=== PATIENT | male | born 1960 | race Caucasian/White ===

== ENCOUNTER 2016-12-08 13:04 | Inpatient (IN) | payer BC ==
[2016-12-08 13:52] VITALS: BMI 22.1
--- NOTE | 2016-12-08 15:45 | HP ---
CIWA Score - CIWA Score Nausea/Vomitin Muscle Tremors: 3 Anxiety: 3 Agitation: 2 Paroxysmal Sweats: 3 Orientation: 0-Oriented Tacttile Disturbances: 1-Very Mild Itch/Numbness Auditory Disturbances: 0-None Visual Disturbances: 1-Very Mild Sensitivity Headache: 2-Mild CIWA-Ar Total Score: 17 Admission ROS BHS - HPI Chief Complaint: I'm here for detox Allergies/Adverse Reactions: Allergies Allergy/AdvReac Type Severity Reaction Status Date / Time No Known Allergies Allergy Verified 12/08/16 15:07 History of Present Illness: 56 y/o male with alcohol dependence presents for detox. He reports being sober for 5 years about 3 years ago, his last detox was in 2014 at [facility]. Exam Limitations: No Limitations - Ebola screening Have you traveled outside of the country in the last 21 days: No Have you had contact with anyone from an Ebola affected area: No Have you been sick,other than usual withdrawal symptoms: No Do you have a fever: No - Review of Systems Constitutional: Loss of Appetite, Unexplained wgt Loss EENT: reports: No Symptoms Reported Respiratory: reports: No Symptoms reported Cardiac: reports: No Symptoms Reported GI: reports: Nausea, Poor Appetite, Poor Fluid Intake : reports: No Symptoms Reported Musculoskeletal: reports: Muscle Pain, Muscle Weakness Integumentary: reports: No Symptoms Reported Neuro: reports: Headache, Numbness, Tremors Endocrine: reports: No Symptoms Reported Hematology: reports: No Symptoms Reported Psychiatric: reports: Anxious Other Systems: Reviewed and Negative Patient History - Patient Medical History Hx Anemia: No Hx Asthma: No Hx Chronic Obstructive Pulmonary Disease (COPD): No Hx Cancer: No Hx Cardiac Disorders: No Hx Congestive Heart Failure: No Hx Hypertension: No Hx Hypercholesterolemia: No Hx Pacemaker: No HX Cerebrovascular Accident: No Hx Seizures: Yes (last episode 7 years ago) Hx Dementia: No Hx Diabetes: No Hx Gastrointestinal Disorders: No Hx Liver Disease: No Hx Genitourinary Disorders: No Hx Sexually Transmitted Disorders: No Hx Renal Disease (ESRD): No Hx Thyroid Disease: No Hx Human Immunodeficiency Virus (HIV): No Hx Hepatitis C: No Hx Depression: Yes (anxiety) Hx Suicide Attempt: No Hx Bipolar Disorder: No Hx Schizophrenia: No - Patient Surgical History Past Surgical History: Yes Hx Neurologic Surgery: No Hx Cataract Extraction: No Hx Cardiac Surgery: No Hx Lung Surgery: No Hx Breast Surgery: No Hx Breast Biopsy: No Hx Abdominal Surgery: No Hx Appendectomy: No Hx Cholecystectomy: No Hx Genitourinary Surgery: No Hx Section: No Hx Orthopedic Surgery: Yes (bunion removal) Anesthesia Reaction: No - PPD History Previous Implant?: Yes Documented Results: Negative w/proof Implanted On Prior R Admission?: Yes Date: 08/03/15 PPD to be Administered?: Yes - Smoking Cessation Smoking history: Current every day smoker Have you smoked in the past 12 months: Yes Aproximately how many cigarettes per day: 15 Hx Chewing Tobacco Use: No Initiated information on smoking cessation: Yes 'Breaking Loose' booklet given: 12/08/16 - Substances Abused Alcohol Route: Oral Frequency: Daily Amount used: LIQUOR- 1 PINT Age of first use: 17 Date of Last Use: 12/08/16 Family Disease History - Family Disease History Family Disease History: Diabetes: Brother, Heart Disease: Mother (HTN), Other: Father (ALCOHOLIC) Admission Physical Exam S - Vital Signs Vital Signs: Vital Signs - 24 hr 12/08/16 13:49 Temperature 98.5 F Pulse Rate 99 H Respiratory 20 Rate Blood Pressure 143/82 - Physical General Appearance: Yes: No Apparent Distress, Nourished HEENTM: Yes: EOMI, Normocephalic, Normal Voice Respiratory: Yes: Chest Non-Tender, Lungs Clear, Normal Breath Sounds, No Respiratory Distress, No Accessory Muscle Use Neck: Yes: No masses,lesions,Nodules, Supple Breast: Yes: Breast Exam Deferred Cardiology: Yes: Regular Rhythm, Regular Rate Abdominal: Yes: Normal Bowel Sounds, Soft Genitourinary: Yes: Within Normal Limits Back: Yes: Normal Inspection Musculoskeletal: Yes: full range of Motion, Gait Steady, Pelvis Stable Extremities: Yes: Normal Capillary Refill, Normal Inspection, Normal Range of Motion, Non-Tender, Tremors Neurological: Yes: sas administrator II-XII NML intact, Fully Oriented, Alert, Normal Mood/ Affect, Normal Response Integumentary: Yes: Clammy Lymphatic: Yes: Within Normal Limits - Diagnostic (1) Alcohol dependence with uncomplicated withdrawal Current Visit: Yes Status: Acute (2) Nicotine dependence Current Visit: No Status: Acute Qualifiers: Nicotine product type: cigarettes Substance use status: uncomplicated Qualified Code(s): F17.210 - Nicotine dependence, cigarettes, uncomplicated Cleared for Admission BHS - Detox or Rehab [facility] Level of Care: Medically Managed Detox Regimen/Protocol: Librium [facility] Breath Alcohol Content Breath Alcohol Content: 0 Urine Drug Screen - Results Drug Screen Negative: Yes
[2016-12-08] MEDS ORDERED: NICOTINE POLACRILEX 2 MG GUM BC PRN (15:48)
[2016-12-08] MEDS ORDERED: chlordiazePOXIDE HCL 25 MG CAPSULE PO ONE (15:48)
[2016-12-08] MEDS ORDERED: MENTHOL/PHENOL 1 EACH UD MM PRN (15:48)
[2016-12-08] MEDS ORDERED: LOPERAMIDE HCL 2 MG CAPSULE PO PRN (15:48)
[2016-12-08] MEDS ORDERED: P-EPHED 60MG/TRIPROLIDI 2.5MG TABLET PO PRN (15:48)
[2016-12-08] MEDS ORDERED: ACETAMINOPHEN 325 MG TABLET (FP) PO PRN (15:48)
[2016-12-08] MEDS ORDERED: chlordiazePOXIDE HCL 25 MG CAPSULE PO PRN (15:48)
[2016-12-08] MEDS ORDERED: MAGNESIUM CITRATE 300 ML BOTTLE PO PRN (15:48)
[2016-12-08] MEDS ORDERED: IBUPROFEN 400 MG TABLET (FP) PO PRN (15:48)
[2016-12-08] MEDS ORDERED: hydrOXYzine PAMOATE 50 MG CAPSULE (FP) PO PRN (15:48)
[2016-12-08] MEDS ORDERED: guaiFENesin/D-METHORPHAN HB 10 ML UNIT-DOSE CUPS PO PRN (15:48)
[2016-12-08] MEDS ORDERED: MAGNESIUM HYDROX 2400MG/30ML ORAL SUSPENSION 30 ML CUP PO PRN (15:48)
[2016-12-08] MEDS ORDERED: MAG HYDROX/AL HYDROX/SIMETH 30 ML UNIT-DOSE CUP PO PRN (15:48)
[2016-12-08] MEDS: chlordiazePOXIDE HCL 25 MG CAPSULE PO SCH ×2 (17:18→22:46)
[2016-12-08] MEDS: NICOTINE 14 MG/24 HOURS TOPICAL PATCH TD SCH (17:18)
[2016-12-08] MEDS: THIAMINE HCL 100 MG TABLET (FP) PO SCH (22:46)
[2016-12-08] MEDS: diphenhydrAMINE HCL 50 MG CAPSULE PO PRN (22:46)
[2016-12-09] MEDS: chlordiazePOXIDE HCL 25 MG CAPSULE PO SCH ×4 (06:10→22:30)
[2016-12-09 10:00] LABS: MCH 35.8 pg (25.7-33.7); MCHC 34.4 g/dl (32.0-35.9); MEAN CELL VOLUME 104.2 fl (80-96); MEAN PLT VOLUME 8.5 fl (7.5-11.1); PLATELET COUNT 204 K/MM3 (134-434); RDW 14.9 % (11.9-15.9)
[2016-12-09 10:12] LABS: ALBUMIN 3.6 g/dl (3.4-5.0); ALK PHOS 54 U/L (45-117); ANION GAP 10 (8-16); BILIRUBIN,TOTAL 0.8 mg/dL (0.2-1.0); CALCIUM 8.8 mg/dL (8.5-10.1); CO2 28 mmol/L (21-32); CREATININE 0.9 mg/dL (0.7-1.3); GLUCOSE,RANDOM 92 mg/dL (74-106); SGOT/AST 52 U/L (15-37); SGPT/ALT 37 U/L (12-78); TOT PROT 6.4 g/dl (6.4-8.2)
[2016-12-09 10:21] LABS: URINE APPEARANCE CLEAR; URINE BILIRUBIN NEGATIVE (NEGATIVE); URINE COLOR DKYELLOW; URINE GLUCOSE (UA) NEGATIVE (NEGATIVE); URINE KETONE NEGATIVE (NEGATIVE); URINE LEUK ESTERASE NEGATIVE (NEGATIVE); URINE NITRITE NEGATIVE (NEGATIVE); URINE UROBILINOGEN NEGATIVE E.U./dl (0.2-1.0)
[2016-12-09 10:35] LABS: URINE BLOOD 1+ (NEGATIVE); URINE PROTEIN 1+ (NEGATIVE)
[2016-12-09] MEDS: NICOTINE 14 MG/24 HOURS TOPICAL PATCH TD SCH (10:42)
[2016-12-09] MEDS: PRENATAL VITAMINS W/ FOLIC ACID TABLET (FP) PO SCH (10:42)
[2016-12-09 11:03] LABS: URINE MUCUS RARE; URINE RBC 1 /hpf (0-3)
--- NOTE | 2016-12-09 11:39 | PN ---
[facility] CIWA - CIWA Score Nausea/Vomitin-No Nausea/No Vomiting Muscle Tremors: 3 Anxiety: 3 Agitation: 4-Moderately Restless Paroxysmal Sweats: 3 Orientation: 0-Oriented Tacttile Disturbances: 0-None Auditory Disturbances: 0-None Visual Disturbances: 0-None Headache: 0-None Present CIWA-Ar Total Score: 13 S Progress Note (SOAP) Subjective: Anxiety,tremors,sweating,interrupted sleep,restless Objective: 12/09/16 11:37 Vital Signs - 8 hr 12/09/16 12/09/16 12/09/16 03:47 06:00 09:42 Temperature 97.7 F 98.2 F Pulse Rate 68 91 H Respiratory 18 18 18 Rate Blood Pressure 140/78 128/81 Laboratory Last Values WBC 6.0 K/mm3 (4.0-10.0) D 12/09/16 08:00 RBC 3.76 M/mm3 (4.00-5.60) L 12/09/16 08:00 Hgb 13.5 GM/dL (11.7-16.9) 12/09/16 08:00 Hct 39.2 % (35.4-49) 12/09/16 08:00 MCV 104.2 fl (80-96) H 12/09/16 08:00 MCHC 34.4 g/dl (32.0-35.9) 12/09/16 08:00 RDW 14.9 % (11.9-15.9) 12/09/16 08:00 Plt Count 204 K/MM3 (134-434) 12/09/16 08:00 MPV 8.5 fl (7.5-11.1) 12/09/16 08:00 Sodium 141 mmol/L (136-145) 12/09/16 08:00 Potassium 3.3 mmol/L (3.5-5.1) L 12/09/16 08:00 Chloride 103 mmol/L (98-107) 12/09/16 08:00 Carbon Dioxide 28 mmol/L (21-32) 12/09/16 08:00 Anion Gap 10 (8-16) 12/09/16 08:00 BUN 14 mg/dL (7-18) 12/09/16 08:00 Creatinine 0.9 mg/dL (0.7-1.3) 12/09/16 08:00 Creat Clearance w eGFR > 60 (>60) 12/09/16 08:00 Random Glucose 92 mg/dL (74-106) 12/09/16 08:00 Calcium 8.8 mg/dL (8.5-10.1) 12/09/16 08:00 Total Bilirubin 0.8 mg/dL (0.2-1.0) D 12/09/16 08:00 AST 52 U/L (15-37) H 12/09/16 08:00 ALT 37 U/L (12-78) 12/09/16 08:00 Alkaline Phosphatase 54 U/L (45-117) D 12/09/16 08:00 Total Protein 6.4 g/dl (6.4-8.2) 12/09/16 08:00 Albumin 3.6 g/dl (3.4-5.0) 12/09/16 08:00 Urine Color Dkyellow 12/08/16 08:40 Urine Appearance Clear 12/08/16 08:40 Urine pH 5.0 (5.0-8.0) 12/08/16 08:40 Urine Protein 1+ (NEGATIVE) H 12/08/16 08:40 Urine Glucose (UA) Negative (NEGATIVE) 12/08/16 08:40 Urine Ketones Negative (NEGATIVE) 12/08/16 08:40 Urine Blood 1+ (NEGATIVE) H 12/08/16 08:40 Urine Nitrite Negative (NEGATIVE) 12/08/16 08:40 Urine Bilirubin Negative (NEGATIVE) 12/08/16 08:40 Urine Urobilinogen Negative E.U./dl (0.2-1.0) 12/08/16 08:40 Ur Leukocyte Esterase Negative (NEGATIVE) 12/08/16 08:40 Urine RBC 1 /hpf (0-3) 12/08/16 08:40 Urine WBC None /hpf (3-5) 12/08/16 08:40 Ur Epithelial Cells Rare /hpf (FEW) 12/08/16 08:40 Urine Mucus Rare 12/08/16 08:40 labs noted,k+ replacement ordered Assessment: 12/09/16 11:38 Withdrawal sx. Hypokalemia Plan: Continue detox K-dur
[2016-12-09] MEDS: POTASSIUM CHLORIDE TABS 20 MEQ TABLET.ER (FP) PO SCH ×2 (12:33→22:30)
[2016-12-09] MEDS: THIAMINE HCL 100 MG TABLET (FP) PO SCH (22:30)
[2016-12-09] MEDS: diphenhydrAMINE HCL 50 MG CAPSULE PO PRN (22:31)
[2016-12-10] MEDS: chlordiazePOXIDE HCL 25 MG CAPSULE PO SCH ×2 (05:21→10:05)
--- NOTE | 2016-12-10 09:10 | EKG ---
Test Reason : Blood Pressure : / mmHG Vent. Rate : 074 BPM Atrial Rate : 074 BPM P-R Int : 198 ms QRS Dur : 108 ms QT Int : 386 ms P-R-T Axes : 082 065 055 degrees QTc Int : 428 ms NORMAL SINUS RHYTHM INCOMPLETE RIGHT BUNDLE BRANCH BLOCK BORDERLINE ECG NO PREVIOUS ECGS AVAILABLE Confirmed by LUCA HESS MD ([id number]) on 12/10/2016 9:10:34 AM Referred By: Confirmed By:LUCA HESS MD
[2016-12-10] MEDS: POTASSIUM CHLORIDE TABS 20 MEQ TABLET.ER (FP) PO SCH ×2 (10:05→22:10)
[2016-12-10] MEDS: PRENATAL VITAMINS W/ FOLIC ACID TABLET (FP) PO SCH (10:05)
[2016-12-10] MEDS: NICOTINE 14 MG/24 HOURS TOPICAL PATCH TD SCH (10:06)
--- NOTE | 2016-12-10 10:32 | CONSULT ---
[facility] Psychiatric Consult - Data Date of interview: 12/10/16 Admission source: [facility] Identifying data: This is 56years old male with nopm psychiatric hospitalization history intoxicated with: Alcohol and Nicotine Substance Abuse History: Implanted On Prior [facility] Admission?: Yes. Date: . PPD to be Administered?: Yes. - Smoking Cessation. Smoking history: Current every day smoker. Have you smoked in the past 12 months: Yes. Aproximately how many cigarettes per day: 15. Hx Chewing Tobacco Use: No. Initiated information on smoking cessation: Yes. 'Breaking Loose' booklet given : 12/08/16. - Substances Abused. Alcohol. Route: Oral. Frequency: Daily. Amount used: LIQUOR- 1 PINT. Age of first use: 17. Date of Last Use: Medical History: Seizure history Psychiatric History: Patient reports history of depression and anxiety,. reports no medications taking prior to admission Physical/Sexual Abuse/Trauma History: Denies Additional Comment: Observation. Detox Unit Care Protocol Mental Status Exam - Mental Status Exam Alert and Oriented to: Person Cognitive Function: Fair Patient Appearance: Unkempt Mood: Sad Affect: Flat Patient Behavior: Sedated Speech Pattern: Delayed Voice Loudness: Mildly Soft/Quiet Thought Process: Circumstantial Thought Disorder: Being Controlled Hallucinations: Denies Suicidal Ideation: Denies Homicidal Ideation: Denies Insight/Judgement: Fair Sleep: Difficulty falling asleep Appetite: Fair Muscle strength/Tone: Mild Hypotonicity Gait/Station: Shuffling Additional Comments: Observation. Detox Unit Care Protocol Psychiatric Findings - Problem List ([place] 1, 2,3) (1) Alcohol dependence with uncomplicated withdrawal Current Visit: Yes Status: Acute (2) Alcohol dependence Current Visit: No Status: Active (3) Acute alcoholic intoxication, in remission Current Visit: No Status: Acute (4) Alcohol dependence with uncomplicated intoxication Current Visit: No Status: Acute (5) Alcohol dependence, continuous Current Visit: No Status: Acute (6) Alcohol dependence, episodic drinking behavior Current Visit: No Status: Acute (7) Alcohol-induced anxiety disorder Current Visit: No Status: Acute (8) Anxiety and depression Current Visit: No Status: Acute (9) Nicotine dependence Current Visit: No Status: Acute Qualifiers: Nicotine product type: cigarettes Substance use status: uncomplicated Qualified Code(s): F17.210 - Nicotine dependence, cigarettes, uncomplicated (10) Drug-induced mood disorder Current Visit: Yes Status: Acute - Initial Treatment Plan Initial Treatment Plan: Observation. Detox Unit Care Protocol
--- NOTE | 2016-12-10 11:56 | PN ---
S CIWA - CIWA Score Nausea/Vomitin Muscle Tremors: 3 Anxiety: 2 Agitation: 2 Paroxysmal Sweats: 3 Orientation: 0-Oriented Tacttile Disturbances: 1-Very Mild Itch/Numbness Auditory Disturbances: 0-None Visual Disturbances: 0-None Headache: 0-None Present CIWA-Ar Total Score: 13 BHS Progress Note (SOAP) Subjective: interrupted sleep, sweats shakes Objective: 12/10/16 12:02 Vital Signs Temperature 98.1 F 12/10/16 09:57 Pulse Rate 77 12/10/16 09:57 Respiratory Rate 18 12/10/16 09:57 Blood Pressure 137/76 12/10/16 09:57 O2 Sat by Pulse Oximetry (%) Laboratory Tests 12/08/16 12/09/16 12/09/16 08:40 08:00 08:00 WBC 6.0 D RBC 3.76 L Hgb 13.5 Hct 39.2 MCV 104.2 H MCHC 34.4 RDW 14.9 Plt Count 204 MPV 8.5 Sodium 141 Potassium 3.3 L Chloride 103 Carbon Dioxide 28 Anion Gap 10 BUN 14 Creatinine 0.9 Creat Clearance w eGFR > 60 Random Glucose 92 Calcium 8.8 Total Bilirubin 0.8 D AST 52 H ALT 37 Alkaline Phosphatase 54 D Total Protein 6.4 Albumin 3.6 Urine Color Dkyellow Urine Appearance Clear Urine pH 5.0 Ur Specific [place] 1.020 Urine Protein 1+ H Urine Glucose (UA) Negative Urine Ketones Negative Urine Blood 1+ H Urine Nitrite Negative Urine Bilirubin Negative Urine Urobilinogen Negative Ur Leukocyte Esterase Negative Urine RBC 1 Urine WBC None Ur Epithelial Cells Rare Urine Mucus Rare RPR Titer 12/09/16 08:00 WBC RBC Hgb Hct MCV MCHC RDW Plt Count MPV Sodium Potassium Chloride Carbon Dioxide Anion Gap BUN Creatinine Creat Clearance w eGFR Random Glucose Calcium Total Bilirubin AST ALT Alkaline Phosphatase Total Protein Albumin Urine Color Urine Appearance Urine pH Ur Specific [place] Urine Protein Urine Glucose (UA) Urine Ketones Urine Blood Urine Nitrite Urine Bilirubin Urine Urobilinogen Ur Leukocyte Esterase Urine RBC Urine WBC Ur Epithelial Cells Urine Mucus RPR Titer Nonreactive pt aox3 in nad ambulating Assessment: 12/10/16 12:02 withdrawal sx's Plan: cont. detox increase fluids
[2016-12-10] MEDS: chlordiazePOXIDE 5 MG CAPSULE PO SCH ×2 (17:12→22:10)
[2016-12-10] MEDS: diphenhydrAMINE HCL 50 MG CAPSULE PO PRN (22:10)
[2016-12-10] MEDS: THIAMINE HCL 100 MG TABLET (FP) PO SCH (22:10)
[2016-12-11] MEDS: chlordiazePOXIDE 5 MG CAPSULE PO SCH ×2 (05:19→11:04)
[2016-12-11] MEDS: POTASSIUM CHLORIDE TABS 20 MEQ TABLET.ER (FP) PO SCH ×2 (10:55→22:16)
[2016-12-11] MEDS: NICOTINE 14 MG/24 HOURS TOPICAL PATCH TD SCH (11:02)
[2016-12-11] MEDS: PRENATAL VITAMINS W/ FOLIC ACID TABLET (FP) PO SCH (11:04)
--- NOTE | 2016-12-11 11:54 | PN ---
BHS Progress Note (SOAP) Subjective: sweats anxious Objective: 12/11/16 11:55 Vital Signs Temperature 97.7 F 12/11/16 11:02 Pulse Rate 79 12/11/16 11:02 Respiratory Rate 18 12/11/16 11:02 Blood Pressure 125/71 12/11/16 11:02 O2 Sat by Pulse Oximetry (%) awake/alert ambulating no acute distress Assessment: 12/11/16 11:55 withdrawal sx Plan: continue detox d/c in am
[2016-12-11] MEDS: chlordiazePOXIDE HCL 10 MG CAPSULE PO SCH ×2 (17:34→22:16)
[2016-12-11] MEDS: diphenhydrAMINE HCL 50 MG CAPSULE PO PRN (22:16)
[2016-12-11] MEDS: THIAMINE HCL 100 MG TABLET (FP) PO SCH (22:16)
[2016-12-12] MEDS: diphenhydrAMINE HCL 50 MG CAPSULE PO PRN (01:53)
[2016-12-12] MEDS: chlordiazePOXIDE HCL 10 MG CAPSULE PO SCH (06:03)
[2016-12-12 06:40] VITALS: BP 92/67; PULSE 91; TEMP 97
--- NOTE | 2016-12-12 09:00 | DS ---
[facility] Detox Discharge Summary Admission Date: 12/08/16 - History Present History: Alcohol Dependence - Physical Exam Results Vital Signs: Vital Signs Temperature 97.0 F L 12/12/16 06:00 Pulse Rate 91 H 12/12/16 06:00 Respiratory Rate 18 12/12/16 06:00 Blood Pressure 92/67 12/12/16 06:00 O2 Sat by Pulse Oximetry (%) - Treatment Hospital Course: Detox Protocol Followed, Detoxed Safely, Responded well, Discharged Condition Good - Medication Discharge Medications: Ambulatory Orders NK [No Known Home Medication] 05/03/14 - Diagnosis (1) Alcohol dependence with uncomplicated withdrawal Current Visit: Yes Status: Chronic (2) Anxiety and depression Current Visit: Yes Status: Chronic (3) Nicotine dependence Current Visit: Yes Status: Chronic Qualifiers: Nicotine product type: cigarettes Substance use status: uncomplicated Qualified Code(s): F17.210 - Nicotine dependence, cigarettes, uncomplicated (4) Seizure Current Visit: Yes Status: Chronic - AMA Did Patient Leave Against Medical Advice: No
== END 2016-12-12 09:25 | disposition home or self-care (01) | DRG 897 ==
LOC: YASAS 13:04 → Y6N 15:08
PROVIDERS: ADMIT Internal Medicine; ATTEND Internal Medicine Addiction Medicine
PROC: HZ2ZZZZ Detoxification Services for Substance Abuse Treatment (ICD-10-PCS; principal; 2016-12-08)
DX: F10.230 Alcohol dependence with withdrawal, uncomplicated (principal); F10.280 Alcohol dependence with alcohol-induced anxiety disorder; F17.210 Nicotine dependence, cigarettes, uncomplicated; F41.8 Other specified anxiety disorders; E87.6 Hypokalemia; Z86.69 Personal history of other diseases of the nervous system and sense organs
CPT/HCPCS: 36415; 80053; 81003; 81015; 85027; 86593; 93005; 93010

== ENCOUNTER 2017-01-18 20:47 | Inpatient (IN) | payer BC ==
[2017-01-18 22:11] VITALS: BMI 21.5
--- NOTE | 2017-01-18 22:18 | HP ---
CIWA Score - CIWA Score Nausea/Vomitin-Mild Nausea/No Vomiting Muscle Tremors: 4-Moderate,w/Arms Extend Anxiety: 4-Mod. Anxious/Guarded Agitation: 4-Moderately Restless Paroxysmal Sweats: 1-Minimal Palms Moist Orientation: 1-Uncertain about Date Tacttile Disturbances: 0-None Auditory Disturbances: 0-None Visual Disturbances: 0-None Headache: 0-None Present CIWA-Ar Total Score: 15 Admission ROS BHS - HPI Chief Complaint: withdrawal sx Allergies/Adverse Reactions: Allergies Allergy/AdvReac Type Severity Reaction Status Date / Time No Known Allergies Allergy Verified 12/08/16 15:07 History of Present Illness: 56 years old male with long history of alcohol nicotine dependence denies medical issue has anxiety and depression is admitted to detox Exam Limitations: No Limitations - Ebola screening Have you traveled outside of the country in the last 21 days: No (N) Have you had contact with anyone from an Ebola affected area: No Have you been sick,other than usual withdrawal symptoms: No Do you have a fever: No - Review of Systems Constitutional: Chills, Loss of Appetite, Changes in sleep, Unintentional Wgt. Loss, Unexplained wgt Loss EENT: reports: No Symptoms Reported Respiratory: reports: No Symptoms reported Cardiac: reports: No Symptoms Reported GI: reports: Nausea, Poor Appetite, Poor Fluid Intake, Abdominal cramping : reports: No Symptoms Reported Musculoskeletal: reports: No Symptoms Reported Integumentary: reports: No Symptoms Reported Neuro: reports: Seizure (2012), Tremors Endocrine: reports: No Symptoms Reported Hematology: reports: No Symptoms Reported Psychiatric: reports: Judgement Intact, Depressed Other Systems: Reviewed and Negative Patient History - Patient Medical History Hx Anemia: No Hx Asthma: No Hx Chronic Obstructive Pulmonary Disease (COPD): No Hx Cancer: No Hx Cardiac Disorders: No Hx Congestive Heart Failure: No Hx Hypertension: No Hx Hypercholesterolemia: No Hx Pacemaker: No HX Cerebrovascular Accident: No Hx Seizures: Yes (last episode 7 years ago) Hx Dementia: No Hx Diabetes: No Hx Gastrointestinal Disorders: No Hx Liver Disease: No Hx Genitourinary Disorders: No Hx Sexually Transmitted Disorders: No Hx Renal Disease (ESRD): No Hx Thyroid Disease: No Hx Human Immunodeficiency Virus (HIV): No Hx Hepatitis C: No Hx Depression: Yes (anxiety) Hx Suicide Attempt: No Hx Bipolar Disorder: No Hx Schizophrenia: No - Patient Surgical History Past Surgical History: Yes Hx Neurologic Surgery: No Hx Cataract Extraction: No Hx Cardiac Surgery: No Hx Lung Surgery: No Hx Breast Surgery: No Hx Breast Biopsy: No Hx Abdominal Surgery: No Hx Appendectomy: No Hx Cholecystectomy: No Hx Genitourinary Surgery: No Hx Orthopedic Surgery: Yes (bunion removal) Anesthesia Reaction: No - PPD History Previous Implant?: Yes Documented Results: Negative w/o proof Implanted On Prior [facility] Admission?: Yes Date: 12/10/16 PPD to be Administered?: No - Smoking Cessation Smoking history: Current every day smoker Have you smoked in the past 12 months: Yes Aproximately how many cigarettes per day: 10 Cigars Per Day: 0 Hx Chewing Tobacco Use: No Initiated information on smoking cessation: Yes 'Breaking Loose' booklet given: 01/18/17 - Substance & Tx. History Hx Alcohol Use: Yes Hx Substance Use: No Substance Use Type: Alcohol Hx Substance Use Treatment: Yes (12/08-12/12/16) - Substances Abused Alcohol Route: Oral Frequency: Daily Amount used: 35ozbeer+whisky 21oz Age of first use: 25 Date of Last Use: 01/18/17 Family Disease History - Family Disease History Family Disease History: Diabetes: Brother, Heart Disease: Mother (HTN), Other: Father (ALCOHOLIC/) Admission Physical Exam S - Vital Signs Vital Signs: Vital Signs - 24 hr 01/18/17 22:09 Temperature 96.5 F L Pulse Rate 92 H Respiratory 18 Rate Blood Pressure 142/84 - Physical General Appearance: Yes: Appropriately Dressed, Mild Distress, Alcohol on Breath , Thin, Tremorous, Irritable, Sweating, Anxious HEENTM: Yes: Hearing grossly Normal, Normal ENT Inspection, Normocephalic, Normal Voice Respiratory: Yes: Chest Non-Tender, Lungs Clear, Normal Breath Sounds, No Respiratory Distress, No Accessory Muscle Use Neck: Yes: Supple, Trachea in good position Breast: Yes: Breasts Symetrical Cardiology: Yes: Regular Rhythm, S1, S2, Tachycardia Abdominal: Yes: Non Tender, Soft Genitourinary: Yes: Within Normal Limits Back: Yes: Normal Inspection Musculoskeletal: Yes: full range of Motion, Gait Steady Extremities: Yes: Normal Inspection, Normal Range of Motion, Non-Tender, Tremors Neurological: Yes: Alert, Motor Strength 5/5, Normal Response, Depressed Affect Integumentary: Yes: Warm Lymphatic: Yes: Within Normal Limits - Diagnostic (1) Alcohol dependence with uncomplicated withdrawal Current Visit: Yes Status: Acute (2) Anxiety and depression Current Visit: Yes Status: Suspected (3) Nicotine dependence Current Visit: Yes Status: Acute Qualifiers: Nicotine product type: cigarettes Substance use status: in withdrawal Qualified Code(s): F17.213 - Nicotine dependence, cigarettes, with withdrawal (4) Weight loss Current Visit: Yes Status: Acute Cleared for Admission [facility] - Detox or Rehab [facility] Level of Care: Medically Managed Detox Regimen/Protocol: Librium [facility] Breath Alcohol Content Breath Alcohol Content: 0.395 Urine Drug Screen - Results Drug Screen Negative: Yes
[2017-01-18] MEDS ORDERED: P-EPHED 60MG/TRIPROLIDI 2.5MG TABLET PO PRN (22:30)
[2017-01-18] MEDS ORDERED: chlordiazePOXIDE HCL 25 MG CAPSULE PO ONE (22:30)
[2017-01-18] MEDS ORDERED: NICOTINE POLACRILEX 2 MG GUM BC PRN (22:30)
[2017-01-18] MEDS ORDERED: MAGNESIUM CITRATE 300 ML BOTTLE PO PRN (22:30)
[2017-01-18] MEDS ORDERED: NICOTINE 14 MG/24 HOURS TOPICAL PATCH TD PRN (22:30)
[2017-01-18] MEDS ORDERED: LOPERAMIDE HCL 2 MG CAPSULE PO PRN (22:30)
[2017-01-18] MEDS ORDERED: ACETAMINOPHEN 325 MG TABLET (FP) PO PRN (22:30)
[2017-01-18] MEDS ORDERED: MENTHOL/PHENOL 1 EACH UD MM PRN (22:30)
[2017-01-18] MEDS ORDERED: guaiFENesin/D-METHORPHAN HB 10 ML UNIT-DOSE CUPS PO PRN (22:30)
[2017-01-18] MEDS ORDERED: MAG HYDROX/AL HYDROX/SIMETH 30 ML UNIT-DOSE CUP PO PRN (22:30)
[2017-01-18] MEDS ORDERED: MAGNESIUM HYDROX 2400MG/30ML ORAL SUSPENSION 30 ML CUP PO PRN (22:30)
[2017-01-18] MEDS: chlordiazePOXIDE HCL 25 MG CAPSULE PO SCH (23:29)
[2017-01-18 23:58] LABS: URINE APPEARANCE CLEAR; URINE BILIRUBIN NEGATIVE (NEGATIVE); URINE COLOR LTYELLOW; URINE GLUCOSE (UA) NEGATIVE (NEGATIVE); URINE KETONE NEGATIVE (NEGATIVE); URINE LEUK ESTERASE NEGATIVE (NEGATIVE); URINE NITRITE NEGATIVE (NEGATIVE); URINE PROTEIN NEGATIVE (NEGATIVE); URINE UROBILINOGEN NEGATIVE E.U./dl (0.2-1.0)
[2017-01-19] LABS: URINE BLOOD 1+ (NEGATIVE)
[2017-01-19 00:02] LABS: URINE HYALINE CAST 5 /lpf; URINE MUCUS RARE; URINE RBC 2 /hpf (0-3); URINE WBC <1 /hpf (3-5)
[2017-01-19] MEDS: chlordiazePOXIDE HCL 25 MG CAPSULE PO SCH ×4 (05:53→22:15)
[2017-01-19] MEDS ORDERED: ALBUTEROL SO4 2.5/IPRATROPIUM 0.5 INH SOL 3 ML VIAL.NEB. NEB PRN (07:45)
--- NOTE | 2017-01-19 09:57 | EKG ---
Test Reason : Blood Pressure : / mmHG Vent. Rate : 082 BPM Atrial Rate : 082 BPM P-R Int : 182 ms QRS Dur : 112 ms QT Int : 378 ms P-R-T Axes : 080 058 065 degrees QTc Int : 441 ms NORMAL SINUS RHYTHM INCOMPLETE RIGHT BUNDLE BRANCH BLOCK WHEN COMPARED WITH ECG OF 08-DEC-2016 16:22, NO SIGNIFICANT CHANGE WAS FOUND Confirmed by ELVIE HERNANDEZ MD ([id number]) on 01/19/2017 9:57:38 AM Referred By: Confirmed By:ELVIE HERNANDEZ MD
[2017-01-19] MEDS: PRENATAL VITAMINS W/ FOLIC ACID TABLET (FP) PO SCH (10:05)
[2017-01-19 10:20] LABS: MCH 35.2 pg (25.7-33.7); MCHC 34.6 g/dl (32.0-35.9); MEAN CELL VOLUME 101.6 fl (80-96); MEAN PLT VOLUME 8.1 fl (7.5-11.1); PLATELET COUNT 145 K/MM3 (134-434); RDW 13.7 % (11.9-15.9); WHITE BLOOD COUNT 5.6 K/mm3 (4.0-10.0)
[2017-01-19 11:03] LABS: ALBUMIN 3.6 g/dl (3.4-5.0); ALK PHOS 80 U/L (45-117); ANION GAP 10 (8-16); BILIRUBIN,TOTAL 0.5 mg/dL (0.2-1.0); CALCIUM 8.2 mg/dL (8.5-10.1); CO2 28 mmol/L (21-32); CREATININE 0.8 mg/dL (0.7-1.3); GLUCOSE,RANDOM 70 mg/dL (74-106); SGOT/AST 98 U/L (15-37); SGPT/ALT 54 U/L (12-78); TOT PROT 6.6 g/dl (6.4-8.2)
--- NOTE | 2017-01-19 12:52 | CONSULT ---
[facility] Psychiatric Consult - Data Date of interview: 01/19/17 Admission source: [facility] Identifying data: Readmission to [facility] for this 56 y/o male seeking detox treatment for alcohol dependence.Patient is ,a father of one,domiciled and currently employed (trained cody). Substance Abuse History: - Smoking Cessation. Smoking history: Current every day smoker. Have you smoked in the past 12 months: Yes. Aproximately how many cigarettes per day: 10. Cigars Per Day: 0. Hx Chewing Tobacco Use: No. Initiated information on smoking cessation: Yes. 'Breaking Loose' booklet given : 01/18/17. - Substance & Tx. History. Hx Alcohol Use: Yes. Hx Substance Use : No. Substance Use Type: Alcohol. Hx Substance Use Treatment: Yes (12/08-). - Substances Abused. Alcohol. Route: Oral. Frequency: Daily. Amount used: 35ozbeer+whisky 21oz. Age of first use: 25. Date of Last Use: . Confirmed by patient. Medical History: Remote history of withdrawal-related seizures and past bilateral bunionectomy. Psychiatric History: Patient denies. Physical/Sexual Abuse/Trauma History: Patient denies. Additional Comment: Drug Screen is negative. Mental Status Exam - Mental Status Exam Alert and Oriented to: Time, Place, Person Cognitive Function: Good Patient Appearance: Well Groomed Mood: Hopeful, Euthymic Affect: Appropriate, Normal Range Patient Behavior: Fatigued, Cooperative Speech Pattern: Clear Voice Loudness: Normal Thought Process: Goal Oriented Thought Disorder: Not Present Hallucinations: Denies Suicidal Ideation: Denies Homicidal Ideation: Denies Insight/Judgement: Poor Sleep: Poorly, Difficulty falling asleep Appetite: Good Muscle strength/Tone: Normal Gait/Station: Normal Psychiatric Findings - Problem List ([place] 1, 2,3) (1) Alcohol dependence with uncomplicated withdrawal Current Visit: Yes Status: Acute (2) Nicotine dependence Current Visit: Yes Status: Acute Qualifiers: Nicotine product type: cigarettes Substance use status: in withdrawal Qualified Code(s): F17.213 - Nicotine dependence, cigarettes, with withdrawal (3) Insomnia Current Visit: Yes Status: Acute - Initial Treatment Plan Initial Treatment Plan: Psychoeducation.Detoxification.Insomnia is addressed with benadryl 50 mg po hs.Patient made aware of side effects/benefits.Agrees with this careplan.Observation.
[2017-01-19] MEDS: chlordiazePOXIDE HCL 25 MG CAPSULE PO PRN ×2 (15:18→19:54)
[2017-01-19] MEDS: hydrOXYzine PAMOATE 50 MG CAPSULE (FP) PO PRN (17:01)
--- NOTE | 2017-01-19 18:18 | PN ---
S CIWA - CIWA Score Nausea/Vomitin Muscle Tremors: 4-Moderate,w/Arms Extend Anxiety: 2 Agitation: 0-Normal Activity Paroxysmal Sweats: 4-Forehead w/Sweat Beads Orientation: 2-Disoriented Date<2 days Tacttile Disturbances: 1-Very Mild Itch/Numbness Auditory Disturbances: 2-Mild Harshness/Frighten Visual Disturbances: 0-None Headache: 0-None Present CIWA-Ar Total Score: 17 BHS Progress Note (SOAP) Subjective: Tremors, Sweating. Objective: PT. A & O X 2 (DISORIENTED ABOUT DAY / DATE). NO CUTE DISTRESS. PATIENT DENIES CHEST PAIN. 01/19/17 18:14 Vital Signs Temperature 98.4 F 01/19/17 17:15 Pulse Rate 103 H 01/19/17 17:15 Respiratory Rate 19 01/19/17 17:15 Blood Pressure 129/80 01/19/17 17:15 O2 Sat by Pulse Oximetry (%) Laboratory Tests 01/18/17 01/19/17 01/19/17 22:37 08:00 08:00 WBC 5.6 RBC 3.70 L Hgb 13.0 Hct 37.6 MCV 101.6 H MCHC 34.6 RDW 13.7 Plt Count 145 D MPV 8.1 Sodium 142 Potassium 4.0 D Chloride 104 Carbon Dioxide 28 Anion Gap 10 BUN 14 Creatinine 0.8 Creat Clearance w eGFR > 60 Random Glucose 70 L D Calcium 8.2 L Total Bilirubin 0.5 D AST 98 H D ALT 54 D Alkaline Phosphatase 80 D Total Protein 6.6 Albumin 3.6 Urine Color Ltyellow Urine Appearance Clear Urine pH 5.0 Ur Specific [place] < 1.005 L Urine Protein Negative Urine Glucose (UA) Negative Urine Ketones Negative Urine Blood 1+ H Urine Nitrite Negative Urine Bilirubin Negative Urine Urobilinogen Negative Ur Leukocyte Esterase Negative Urine RBC 2 Urine WBC <1 Ur Epithelial Cells Rare Hyaline Casts 5 Urine Mucus Rare LABS NOTED. Assessment: 01/19/17 18:15 WITHDRAWAL SYMPTOMS. Plan: CONTINUE DETOX. REPEAT AST ON 01/21/2014 FOR ELEVATED ADMISSION LEVEL. ADVISED PATIENT TO FOLLOW-UP WITH [facility] AFTER DISCHARGE FROM DETOX FOR GENERAL MEDICAL ASSESSMENT AND FOR ELEVATED ADMISSION AST LEVEL.
[2017-01-19] MEDS: THIAMINE HCL 100 MG TABLET (FP) PO SCH (22:14)
[2017-01-19] MEDS: diphenhydrAMINE HCL 50 MG CAPSULE PO PRN (22:15)
[2017-01-20] MEDS: chlordiazePOXIDE HCL 25 MG CAPSULE PO SCH ×3 (05:23→17:34)
[2017-01-20] MEDS: PRENATAL VITAMINS W/ FOLIC ACID TABLET (FP) PO SCH (10:04)
--- NOTE | 2017-01-20 10:23 | EKG ---
Test Reason : Blood Pressure : / mmHG Vent. Rate : 089 BPM Atrial Rate : 089 BPM P-R Int : 164 ms QRS Dur : 102 ms QT Int : 364 ms P-R-T Axes : 080 068 061 degrees QTc Int : 442 ms POOR DATA QUALITY, INTERPRETATION MAY BE ADVERSELY AFFECTED NORMAL SINUS RHYTHM INCOMPLETE RBBB Confirmed by ELVIE HERNANDEZ MD ([id number]) on 01/20/2017 10:23:25 AM Referred By: Confirmed By:ELVIE HERNANDEZ MD
[2017-01-20] MEDS: chlordiazePOXIDE HCL 25 MG CAPSULE PO PRN (12:25)
--- NOTE | 2017-01-20 15:20 | PN ---
S CIWA - CIWA Score Nausea/Vomitin Muscle Tremors: 4-Moderate,w/Arms Extend Anxiety: 4-Mod. Anxious/Guarded Agitation: 3 Paroxysmal Sweats: 1-Minimal Palms Moist Orientation: 0-Oriented Tacttile Disturbances: 1-Very Mild Itch/Numbness Auditory Disturbances: 0-None Visual Disturbances: 0-None Headache: 1-Very Mild CIWA-Ar Total Score: 16 BHS Progress Note (SOAP) Subjective: Tremor, chills, nausea, anxious Objective: 01/20/17 15:18 Last Vital Signs Temp Pulse Resp BP Pulse Ox 97 F L 89 18 128/80 01/20/17 13:23 01/20/17 13:23 01/20/17 13:23 01/20/17 13:23 Laboratory Tests 01/18/17 01/19/17 01/19/17 22:37 08:00 08:00 WBC 5.6 RBC 3.70 L Hgb 13.0 Hct 37.6 MCV 101.6 H MCHC 34.6 RDW 13.7 Plt Count 145 D MPV 8.1 Sodium 142 Potassium 4.0 D Chloride 104 Carbon Dioxide 28 Anion Gap 10 BUN 14 Creatinine 0.8 Creat Clearance w eGFR > 60 Random Glucose 70 L D Calcium 8.2 L Total Bilirubin 0.5 D AST 98 H D ALT 54 D Alkaline Phosphatase 80 D Total Protein 6.6 Albumin 3.6 Urine Color Ltyellow Urine Appearance Clear Urine pH 5.0 Ur Specific [place] < 1.005 L Urine Protein Negative Urine Glucose (UA) Negative Urine Ketones Negative Urine Blood 1+ H Urine Nitrite Negative Urine Bilirubin Negative Urine Urobilinogen Negative Ur Leukocyte Esterase Negative Urine RBC 2 Urine WBC <1 Ur Epithelial Cells Rare Hyaline Casts 5 Urine Mucus Rare RPR Titer 01/19/17 08:00 WBC RBC Hgb Hct MCV MCHC RDW Plt Count MPV Sodium Potassium Chloride Carbon Dioxide Anion Gap BUN Creatinine Creat Clearance w eGFR Random Glucose Calcium Total Bilirubin AST ALT Alkaline Phosphatase Total Protein Albumin Urine Color Urine Appearance Urine pH Ur Specific [place] Urine Protein Urine Glucose (UA) Urine Ketones Urine Blood Urine Nitrite Urine Bilirubin Urine Urobilinogen Ur Leukocyte Esterase Urine RBC Urine WBC Ur Epithelial Cells Hyaline Casts Urine Mucus RPR Titer Nonreactive Labs noted: UA 1+ blood Assessment: 01/20/17 15:19 Withdrawal symptoms Noted with microscopic hematuria Plan: Continue detox Microscopic hematuria: encouraged to drink lots of water, repeat UA
[2017-01-20] MEDS: hydrOXYzine PAMOATE 50 MG CAPSULE (FP) PO PRN (17:34)
[2017-01-20 20:10] LABS: URINE APPEARANCE CLEAR; URINE BILIRUBIN NEGATIVE (NEGATIVE); URINE BLOOD NEGATIVE (NEGATIVE); URINE COLOR YELLOW; URINE GLUCOSE (UA) NEGATIVE (NEGATIVE); URINE KETONE NEGATIVE (NEGATIVE); URINE LEUK ESTERASE NEGATIVE (NEGATIVE); URINE NITRITE NEGATIVE (NEGATIVE); URINE UROBILINOGEN NEGATIVE E.U./dl (0.2-1.0)
[2017-01-20 20:13] LABS: URINE PROTEIN 1+ (NEGATIVE)
[2017-01-20 20:16] LABS: URINE BACTERIA RARE /hpf (NONE SEEN); URINE MUCUS RARE; URINE RBC 3 /hpf (0-3); URINE WBC 1 /hpf (3-5)
[2017-01-20] MEDS: THIAMINE HCL 100 MG TABLET (FP) PO SCH (22:11)
[2017-01-20] MEDS: chlordiazePOXIDE 5 MG CAPSULE PO SCH (22:11)
[2017-01-20] MEDS: diphenhydrAMINE HCL 50 MG CAPSULE PO PRN (22:12)
[2017-01-21] MEDS: chlordiazePOXIDE 5 MG CAPSULE PO SCH ×3 (05:23→17:18)
[2017-01-21] MEDS: hydrOXYzine PAMOATE 50 MG CAPSULE (FP) PO PRN ×2 (05:24→10:10)
[2017-01-21] MEDS: PRENATAL VITAMINS W/ FOLIC ACID TABLET (FP) PO SCH (10:10)
[2017-01-21] MEDS: IBUPROFEN 400 MG TABLET (FP) PO PRN ×2 (14:24→20:42)
--- NOTE | 2017-01-21 14:30 | PN ---
BHS Progress Note (SOAP) Subjective: Sweating,interrupted sleep,restless Objective: 01/21/17 14:28 Vital Signs - 8 hr 01/21/17 01/21/17 01/21/17 06:47 09:53 13:54 Temperature 97.5 F L 97.7 F 98.1 F Pulse Rate 96 H 111 H 98 H Respiratory 18 18 18 Rate Blood Pressure 123/84 123/83 112/77 Laboratory Tests 01/18/17 01/19/17 01/19/17 22:37 08:00 08:00 WBC 5.6 RBC 3.70 L Hgb 13.0 Hct 37.6 MCV 101.6 H MCHC 34.6 RDW 13.7 Plt Count 145 D MPV 8.1 Sodium 142 Potassium 4.0 D Chloride 104 Carbon Dioxide 28 Anion Gap 10 BUN 14 Creatinine 0.8 Creat Clearance w eGFR > 60 Random Glucose 70 L D Calcium 8.2 L Total Bilirubin 0.5 D AST 98 H D ALT 54 D Alkaline Phosphatase 80 D Total Protein 6.6 Albumin 3.6 Urine Color Ltyellow Urine Appearance Clear Urine pH 5.0 Ur Specific [place] < 1.005 L Urine Protein Negative Urine Glucose (UA) Negative Urine Ketones Negative Urine Blood 1+ H Urine Nitrite Negative Urine Bilirubin Negative Urine Urobilinogen Negative Ur Leukocyte Esterase Negative Urine RBC 2 Urine WBC <1 Ur Epithelial Cells Rare Urine Bacteria Hyaline Casts 5 Urine Mucus Rare RPR Titer 01/19/17 01/20/17 08:00 15:46 WBC RBC Hgb Hct MCV MCHC RDW Plt Count MPV Sodium Potassium Chloride Carbon Dioxide Anion Gap BUN Creatinine Creat Clearance w eGFR Random Glucose Calcium Total Bilirubin AST ALT Alkaline Phosphatase Total Protein Albumin Urine Color Yellow Urine Appearance Clear Urine pH 7.0 D Ur Specific [place] >= 1.030 H Urine Protein 1+ H Urine Glucose (UA) Negative Urine Ketones Negative Urine Blood Negative Urine Nitrite Negative Urine Bilirubin Negative Urine Urobilinogen Negative Ur Leukocyte Esterase Negative Urine RBC 3 Urine WBC 1 Ur Epithelial Cells Rare Urine Bacteria Rare Hyaline Casts Urine Mucus Rare RPR Titer Nonreactive labs noted Assessment: 01/21/17 14:30 Withdrawal sx. Plan: Continue detox
[2017-01-21] MEDS: chlordiazePOXIDE HCL 10 MG CAPSULE PO SCH (22:10)
[2017-01-21] MEDS: diphenhydrAMINE HCL 50 MG CAPSULE PO PRN (22:10)
[2017-01-21] MEDS: THIAMINE HCL 100 MG TABLET (FP) PO SCH (22:10)
[2017-01-22] MEDS: hydrOXYzine PAMOATE 50 MG CAPSULE (FP) PO PRN (01:17)
[2017-01-22] MEDS: IBUPROFEN 400 MG TABLET (FP) PO PRN (05:51)
[2017-01-22] MEDS: chlordiazePOXIDE HCL 10 MG CAPSULE PO SCH ×2 (05:54→11:12)
[2017-01-22 06:33] VITALS: BP 132/81; PULSE 78; TEMP 97.3
[2017-01-22] MEDS: PRENATAL VITAMINS W/ FOLIC ACID TABLET (FP) PO SCH (11:12)
--- NOTE | 2017-01-22 11:39 | DS ---
[facility] Detox Discharge Summary Admission Date: 01/18/17 Discharge Date: 01/22/17 - History Present History: Alcohol Dependence Additional Comments: DETOX COMPLETED. ALERT O X 3. NAD. Pertinent Past History: SEIZURE DISORDER HX - Physical Exam Results Vital Signs: Vital Signs Temperature 97.3 F L 01/22/17 06:33 Pulse Rate 78 01/22/17 06:33 Respiratory Rate 18 01/22/17 06:33 Blood Pressure 132/81 01/22/17 06:33 O2 Sat by Pulse Oximetry (%) Pertinent Admission Physical Exam Findings: WITHDRAWAL SX - Treatment Hospital Course: Detox Protocol Followed, Detoxed Safely, Responded well, Discharged Condition Good, Rehab Referral Accepted Patient has Accepted a Rehab Referral to: [facility] - Medication Discharge Medications: Ambulatory Orders NK [No Known Home Medication] 05/03/14 - Diagnosis (1) Alcohol dependence with uncomplicated withdrawal Current Visit: Yes Status: Acute (2) Nicotine dependence Current Visit: Yes Status: Acute Qualifiers: Nicotine product type: cigarettes Substance use status: in withdrawal Qualified Code(s): F17.213 - Nicotine dependence, cigarettes, with withdrawal (3) Seizure Current Visit: Yes Status: Suspected - AMA Did Patient Leave Against Medical Advice: No
== END 2017-01-22 09:10 | disposition home or self-care (01) | DRG 897 ==
LOC: YASAS 20:47 → Y3N 22:32
PROVIDERS: ADMIT Internal Medicine; ATTEND Internal Medicine
PROC: HZ2ZZZZ Detoxification Services for Substance Abuse Treatment (ICD-10-PCS; principal; 2017-01-18)
DX: F10.230 Alcohol dependence with withdrawal, uncomplicated (principal); F17.213 Nicotine dependence, cigarettes, with withdrawal; F41.8 Other specified anxiety disorders; G47.00 Insomnia, unspecified; R31.29 Other microscopic hematuria; Z86.69 Personal history of other diseases of the nervous system and sense organs; Z87.898 Personal history of other specified conditions
CPT/HCPCS: 36415; 80053; 81003; 81015; 84450; 85027; 86593; 93005; 93010; 94640

== ENCOUNTER 2021-03-05 17:16 | Inpatient (IN) | payer BC, OTHER ==
[2021-03-05 19:20] VITALS: BMI 22.9
[2021-03-05] MEDS ORDERED: IBUPROFEN 400 MG TABLET (FP) PO PRN (21:22)
[2021-03-05] MEDS ORDERED: MENTHOL/PHENOL 1 EACH UD MM PRN (21:22)
[2021-03-05] MEDS ORDERED: MAGNESIUM CITRATE 300 ML BOTTLE PO PRN (21:22)
[2021-03-05] MEDS ORDERED: MAGNESIUM HYDROX 2400MG/30ML ORAL SUSPENSION 30 ML CUP PO PRN (21:22)
[2021-03-05] MEDS ORDERED: METHOCARBAMOL 500 MG TABLET PO PRN (21:22)
[2021-03-05] MEDS ORDERED: ACETAMINOPHEN 325 MG TABLET (FP) PO PRN ×2 (21:22)
[2021-03-05] MEDS ORDERED: ONDANSETRON *ODT* 4 MG TABLET SL PRN (21:22)
[2021-03-05] MEDS ORDERED: BISMUTH SUBSALICYLATE 524 MG/30 ML PO PRN (21:22)
[2021-03-05] MEDS ORDERED: MAG HYDROX/AL HYDROX/SIMETH 30 ML UNIT-DOSE CUP PO PRN (21:22)
[2021-03-05] MEDS ORDERED: NICOTINE POLACRILEX 2 MG GUM BUC PRN (21:22)
[2021-03-05] MEDS: diazePAM 5 MG TABLET PO PRN (23:49)
[2021-03-05] MEDS: THIAMINE HCL 100 MG TABLET (FP) PO SCH (23:51)
[2021-03-05] MEDS: MELATONIN 5 MG TABLETS PO SCH (23:55)
[2021-03-05] MEDS: diazePAM 5 MG TABLET PO SCH (23:55)
[2021-03-06] MEDS: diazePAM 5 MG TABLET PO SCH ×4 (06:00→22:14)
[2021-03-06] MEDS: PRENATAL VITAMINS W/ FOLIC ACID TABLET (FP) PO SCH (10:30)
[2021-03-06] MEDS: hydrOXYzine PAMOATE 25 MG CAPSULE (FP) PO PRN (10:30)
[2021-03-06] MEDS: NICOTINE 21 MG/24 HOURS TOPICAL PATCH TD SCH (10:31)
[2021-03-06 11:05] LABS: HEMATOCRIT 36.9 % (35.4-49); MCH 34.3 pg (25.7-33.7); MCHC 35.1 g/dl (32.0-35.9); MEAN CELL VOLUME 97.7 fl (80-96); MEAN PLT VOLUME 7.9 fl (7.5-11.1); PLATELET COUNT 195 10^3/uL (134-434); RBC 3.78 M/mm3 (4.00-5.60); RDW 14.5 % (11.9-15.9)
[2021-03-06 11:24] LABS: CALCIUM 8.6 mg/dL (8.5-10.1)
[2021-03-06 11:25] LABS: ALBUMIN 3.9 g/dl (3.4-5.0); BLOOD UREA NITROGEN 11.4 mg/dL (7-18)
[2021-03-06 11:29] LABS: BILIRUBIN,TOTAL 1.5 mg/dL (0.2-1)
[2021-03-06 11:30] LABS: TOT PROT 6.5 g/dl (6.4-8.2)
[2021-03-06] MEDS ORDERED: ALBUTEROL SO4 HFA INHALER IH PRN (11:52)
[2021-03-06] MEDS: amLODIPine BESYLATE 5 MG TABLET (FP) PO SCH (12:25)
[2021-03-06] MEDS: MELATONIN 5 MG TABLETS PO SCH (22:14)
[2021-03-06] MEDS: THIAMINE HCL 100 MG TABLET (FP) PO SCH (22:14)
[2021-03-07] MEDS: diazePAM 5 MG TABLET PO SCH ×3 (05:46→22:35)
[2021-03-07] MEDS: PRENATAL VITAMINS W/ FOLIC ACID TABLET (FP) PO SCH (10:14)
[2021-03-07] MEDS: hydrOXYzine PAMOATE 25 MG CAPSULE (FP) PO PRN (10:14)
[2021-03-07] MEDS: amLODIPine BESYLATE 5 MG TABLET (FP) PO SCH (10:14)
[2021-03-07] MEDS: diazePAM 5 MG TABLET PO PRN (10:15)
[2021-03-07] MEDS: NICOTINE 21 MG/24 HOURS TOPICAL PATCH TD SCH (10:39)
[2021-03-07 11:19] LABS: ALBUMIN 3.8 g/dl (3.4-5.0); BILIRUBIN,DIRECT 0.3 mg/dL (0.0-0.2); BILIRUBIN,TOTAL 1.1 mg/dL (0.2-1); TOT PROT 6.8 g/dl (6.4-8.2)
[2021-03-07] MEDS: THIAMINE HCL 100 MG TABLET (FP) PO SCH (22:35)
[2021-03-07] MEDS: MELATONIN 5 MG TABLETS PO SCH (22:36)
[2021-03-08] MEDS: diazePAM 5 MG TABLET PO SCH ×2 (05:26→17:55)
[2021-03-08] MEDS: amLODIPine BESYLATE 5 MG TABLET (FP) PO SCH (10:35)
[2021-03-08] MEDS: PRENATAL VITAMINS W/ FOLIC ACID TABLET (FP) PO SCH (10:35)
[2021-03-08] MEDS: diazePAM 5 MG TABLET PO PRN (10:37)
[2021-03-08] MEDS: NICOTINE 21 MG/24 HOURS TOPICAL PATCH TD SCH (11:12)
[2021-03-08] MEDS: THIAMINE HCL 100 MG TABLET (FP) PO SCH (22:35)
[2021-03-08] MEDS: MELATONIN 5 MG TABLETS PO SCH (22:35)
[2021-03-09] MEDS ORDERED: diazePAM 5 MG TABLET PO ONE (06:00)
[2021-03-09 06:20] VITALS: BP 102/66; PULSE 65; TEMP 98.2
== END 2021-03-09 09:07 | disposition home or self-care (01) | DRG 897 ==
LOC: YASAS 17:16 → Y6N 23:02
PROVIDERS: ADMIT Allergy & Immunology; ATTEND Allergy & Immunology
PROC: HZ2ZZZZ Detoxification Services for Substance Abuse Treatment (ICD-10-PCS; principal; 2021-03-05)
DX: F10.230 Alcohol dependence with withdrawal, uncomplicated (principal); F10.220 Alcohol dependence with intoxication, uncomplicated; F10.280 Alcohol dependence with alcohol-induced anxiety disorder; F17.213 Nicotine dependence, cigarettes, with withdrawal; I10 Essential (primary) hypertension; J45.20 Mild intermittent asthma, uncomplicated; R63.4 Abnormal weight loss; E80.7 Disorder of bilirubin metabolism, unspecified; Z86.69 Personal history of other diseases of the nervous system and sense organs
CPT/HCPCS: 36415; 80053; 80076; 85027; 86780; 93005; 93010; C9803; U0003; U0005

== ENCOUNTER 2021-03-21 14:57 | Inpatient (IN) | payer BC ==
[2021-03-21 17:47] VITALS: BMI 23.2
[2021-03-21] MEDS ORDERED: METHOCARBAMOL 500 MG TABLET PO PRN (20:16)
[2021-03-21] MEDS ORDERED: MAG HYDROX/AL HYDROX/SIMETH 30 ML UNIT-DOSE CUP PO PRN (20:16)
[2021-03-21] MEDS ORDERED: ACETAMINOPHEN 325 MG TABLET (FP) PO PRN ×2 (20:16)
[2021-03-21] MEDS ORDERED: MAGNESIUM CITRATE 300 ML BOTTLE PO PRN (20:16)
[2021-03-21] MEDS ORDERED: MAGNESIUM HYDROX 2400MG/30ML ORAL SUSPENSION 30 ML CUP PO PRN (20:16)
[2021-03-21] MEDS ORDERED: LORazepam 1 MG TABLET PO PRN (20:16)
[2021-03-21] MEDS ORDERED: IBUPROFEN 400 MG TABLET (FP) PO PRN (20:16)
[2021-03-21] MEDS ORDERED: ONDANSETRON *ODT* 4 MG TABLET SL PRN (20:16)
[2021-03-21] MEDS ORDERED: BISMUTH SUBSALICYLATE 524 MG/30 ML PO PRN (20:16)
[2021-03-21] MEDS ORDERED: MENTHOL/PHENOL 1 EACH UD MM PRN (20:16)
[2021-03-21] MEDS ORDERED: NICOTINE 10 MG CARTRIDGE (INHALER) IH PRN (20:16)
[2021-03-21] MEDS ORDERED: ALBUTEROL SO4 HFA INHALER IH PRN (20:16)
[2021-03-21] MEDS ORDERED: MELATONIN 5 MG TABLETS PO SCH (22:00)
[2021-03-21] MEDS: LORazepam 2 MG TABLET PO SCH (22:14)
[2021-03-21] MEDS: THIAMINE HCL 100 MG TABLET (FP) PO SCH (22:14)
[2021-03-22] MEDS: LORazepam 2 MG TABLET PO SCH ×4 (06:03→22:21)
[2021-03-22] MEDS ORDERED: ALBUTEROL SO4 HFA INHALER IH PRN (08:38)
[2021-03-22] MEDS: PRENATAL VITAMINS W/ FOLIC ACID TABLET (FP) PO SCH (10:45)
[2021-03-22] MEDS: amLODIPine BESYLATE 5 MG TABLET (FP) PO SCH (10:45)
[2021-03-22] MEDS: NICOTINE 21 MG/24 HOURS TOPICAL PATCH TD SCH (10:46)
[2021-03-22 11:04] LABS: HEMOGLOBIN 12.4 GM/dL (11.7-16.9); MCH 34.3 pg (25.7-33.7); MCHC 34.5 g/dl (32.0-35.9); MEAN CELL VOLUME 99.4 fl (80-96); MEAN PLT VOLUME 7.9 fl (7.5-11.1); PLATELET COUNT 246 10^3/uL (134-434); RBC 3.62 M/mm3 (4.00-5.60); RDW 14.6 % (11.9-15.9)
[2021-03-22 11:29] LABS: ALBUMIN 3.8 g/dl (3.4-5.0); CALCIUM 8.9 mg/dL (8.5-10.1)
[2021-03-22 11:30] LABS: BLOOD UREA NITROGEN 14.1 mg/dL (7-18); TOT PROT 6.5 g/dl (6.4-8.2)
[2021-03-22 11:35] LABS: BILIRUBIN,TOTAL 0.9 mg/dL (0.2-1)
[2021-03-22] MEDS: THIAMINE HCL 100 MG TABLET (FP) PO SCH (22:21)
[2021-03-22] MEDS: MELATONIN 5 MG TABLETS PO SCH (22:22)
[2021-03-23] MEDS: LORazepam 1 MG TABLET PO SCH ×4 (07:08→22:37)
[2021-03-23] MEDS: hydrOXYzine PAMOATE 25 MG CAPSULE (FP) PO PRN (10:37)
[2021-03-23] MEDS: NICOTINE 21 MG/24 HOURS TOPICAL PATCH TD SCH (10:37)
[2021-03-23] MEDS: PRENATAL VITAMINS W/ FOLIC ACID TABLET (FP) PO SCH (10:38)
[2021-03-23] MEDS: amLODIPine BESYLATE 5 MG TABLET (FP) PO SCH (10:38)
[2021-03-23] MEDS: MELATONIN 5 MG TABLETS PO SCH (22:37)
[2021-03-23] MEDS: THIAMINE HCL 100 MG TABLET (FP) PO SCH (22:38)
[2021-03-24] MEDS ORDERED: LORazepam 0.5 MG TABLET PO PRN
[2021-03-24] MEDS: LORazepam 0.5 MG TABLET PO SCH ×4 (05:34→22:30)
[2021-03-24] MEDS: hydrOXYzine PAMOATE 25 MG CAPSULE (FP) PO PRN (05:34)
[2021-03-24] MEDS: PRENATAL VITAMINS W/ FOLIC ACID TABLET (FP) PO SCH (10:16)
[2021-03-24] MEDS: NICOTINE 21 MG/24 HOURS TOPICAL PATCH TD SCH (10:16)
[2021-03-24] MEDS: amLODIPine BESYLATE 5 MG TABLET (FP) PO SCH (10:17)
[2021-03-24] MEDS: THIAMINE HCL 100 MG TABLET (FP) PO SCH (22:30)
[2021-03-24] MEDS: MELATONIN 5 MG TABLETS PO SCH (22:30)
[2021-03-25] MEDS ORDERED: LORazepam 0.5 MG TABLET PO ONE (05:00)
[2021-03-25] MEDS: PRENATAL VITAMINS W/ FOLIC ACID TABLET (FP) PO SCH (09:00)
[2021-03-25] MEDS: amLODIPine BESYLATE 5 MG TABLET (FP) PO SCH (09:00)
[2021-03-25 09:59] VITALS: BP 110/68; PULSE 103; TEMP 97.1
[2021-03-25] MEDS: NICOTINE 21 MG/24 HOURS TOPICAL PATCH TD SCH (12:20)
== END 2021-03-25 09:30 | disposition home or self-care (01) | DRG 897 ==
LOC: YASAS 14:57 → Y3N 20:25
PROVIDERS: ADMIT Allergy & Immunology; ATTEND Allergy & Immunology
PROC: HZ2ZZZZ Detoxification Services for Substance Abuse Treatment (ICD-10-PCS; principal; 2021-03-21)
DX: F10.230 Alcohol dependence with withdrawal, uncomplicated (principal); F17.210 Nicotine dependence, cigarettes, uncomplicated; F10.280 Alcohol dependence with alcohol-induced anxiety disorder; F10.282 Alcohol dependence with alcohol-induced sleep disorder; I10 Essential (primary) hypertension; J45.20 Mild intermittent asthma, uncomplicated; M54.5 Low back pain; G89.29 Other chronic pain; R63.8 Other symptoms and signs concerning food and fluid intake; R25.3 Fasciculation; Z86.69 Personal history of other diseases of the nervous system and sense organs
CPT/HCPCS: 36415; 80053; 85027; 86780; C9803; U0003; U0005

== ENCOUNTER 2023-07-04 20:33 | Inpatient (IN) | payer BC, OTHER ==
[2023-07-04 21:14] VITALS: BMI 21.1
[2023-07-04] MEDS ORDERED: ONDANSETRON *ODT* 4 MG TABLET SL PRN (21:41)
[2023-07-04] MEDS ORDERED: MAGNESIUM HYDROX 2400MG/30ML ORAL SUSPENSION 30 ML CUP PO PRN (21:41)
[2023-07-04] MEDS ORDERED: guaiFENesin 600 MG TABLET.ER (FP) PO PRN (21:41)
[2023-07-04] MEDS ORDERED: DICYCLOMINE HCL 10 MG CAPSULE PO PRN (21:41)
[2023-07-04] MEDS ORDERED: BISMUTH SUBSALICYLATE 524 MG/30 ML PO PRN (21:41)
[2023-07-04] MEDS ORDERED: IBUPROFEN 400 MG TABLET (FP) PO PRN (21:41)
[2023-07-04] MEDS ORDERED: POLYETHYLENE GLYCOL (HEALTHYLAX) 3350 17 GM PACKET PO PRN (21:41)
[2023-07-04] MEDS ORDERED: NALOXONE HCL (KLOXXADO) 8 MG SPRAY NS PRN (21:41)
[2023-07-04] MEDS ORDERED: NALOXONE HCL 0.4 MG/ML VIAL IM PRN (21:41)
[2023-07-04] MEDS ORDERED: BENZOCAINE/MENTHOL (CHLORASEPTIC ) LOZENGE MM PRN (21:41)
[2023-07-04] MEDS ORDERED: ACETAMINOPHEN 325 MG TABLET (FP) PO PRN (21:41)
[2023-07-04] MEDS ORDERED: LOPERAMIDE HCL 2 MG CAPSULE PO PRN (21:41)
[2023-07-04] MEDS ORDERED: MAG HYDROX/AL HYDROX/SIMETH 30 ML UNIT-DOSE CUP PO PRN (21:41)
[2023-07-04] MEDS ORDERED: NICOTINE POLACRILEX 4 MG GUM BUC PRN (21:41)
[2023-07-04] MEDS ORDERED: BENZONATATE 200 MG CAPSULE PO PRN (21:41)
[2023-07-04] MEDS ORDERED: MELATONIN 5 MG TABLETS PO SCH (22:00)
[2023-07-05] MEDS: THIAMINE HCL 100 MG TABLET (FP) PO SCH ×2 (02:05→22:21)
[2023-07-05] MEDS: ALBUTEROL SO4 HFA INHALER IH PRN ×2 (09:04→17:03)
[2023-07-05] MEDS: NICOTINE 21 MG/24 HOURS TOPICAL PATCH TD SCH (10:17)
[2023-07-05] MEDS: PRENATAL VITAMINS W/ FOLIC ACID TABLET (FP) PO SCH (10:17)
[2023-07-05] MEDS: IBUPROFEN 600 MG TABLET (FP) PO PRN (10:17)
[2023-07-05] MEDS: amLODIPine BESYLATE 5 MG TABLET (FP) PO SCH (10:17)
[2023-07-05 10:37] LABS: CHLORIDE 104 mmol/L (98-107); POTASSIUM 4.1 mmol/L (3.5-5.1); SODIUM 141 mmol/L (136-145)
[2023-07-05 10:40] LABS: ALBUMIN 3.3 g/dl (3.4-5.0); ANION GAP 4 mmol/L (4-13); BLOOD UREA NITROGEN 15.5 mg/dL (7-18); CO2 32 mmol/L (21-32); GLUCOSE,RANDOM 87 mg/dL (74-106)
[2023-07-05 10:43] LABS: CREATININE 0.9 mg/dL (0.55-1.3); SGOT/AST 23 U/L (15-37); SGPT/ALT 23 U/L (13-61)
[2023-07-05 10:45] LABS: BILIRUBIN,TOTAL 0.8 mg/dL (0.2-1); TOT PROT 6.2 g/dl (6.4-8.2)
[2023-07-05 10:46] LABS: ALK PHOS 57 U/L (45-117)
[2023-07-05 12:17] LABS: HEMATOCRIT 37.9 % (35.4-49); HEMOGLOBIN 13.1 GM/dL (11.7-16.9); MCH 32.1 pg (25.7-33.7); MCHC 34.7 g/dl (32.0-35.9); MEAN CELL VOLUME 92.7 fl (80-96); MEAN PLT VOLUME 7.3 fl (7.5-11.1); PLATELET COUNT 275 10^3/uL (134-434); RBC 4.09 M/mm3 (4.00-5.60); RDW 15.1 % (11.9-15.9); WHITE BLOOD COUNT 7.9 K/mm3 (4.0-10.0)
[2023-07-05] MEDS ORDERED: diazePAM 5 MG TABLET PO PRN (17:07)
[2023-07-05] MEDS: diazePAM 5 MG TABLET PO SCH ×2 (17:27→22:21)
[2023-07-05] MEDS: MELATONIN 5 MG TABLETS PO SCH (22:20)
[2023-07-06] MEDS: diazePAM 5 MG TABLET PO SCH ×4 (05:31→22:13)
[2023-07-06] MEDS: ALBUTEROL SO4 HFA INHALER IH PRN ×3 (05:32→22:14)
[2023-07-06] MEDS: NICOTINE 21 MG/24 HOURS TOPICAL PATCH TD SCH (10:09)
[2023-07-06] MEDS: PRENATAL VITAMINS W/ FOLIC ACID TABLET (FP) PO SCH (10:10)
[2023-07-06] MEDS: amLODIPine BESYLATE 5 MG TABLET (FP) PO SCH (10:10)
[2023-07-06] MEDS: IBUPROFEN 600 MG TABLET (FP) PO PRN (10:11)
[2023-07-06] MEDS: MELATONIN 5 MG TABLETS PO SCH (22:13)
[2023-07-06] MEDS: THIAMINE HCL 100 MG TABLET (FP) PO SCH (22:13)
[2023-07-07] MEDS ORDERED: diazePAM 5 MG TABLET PO SCH (06:00)
[2023-07-07] MEDS: amLODIPine BESYLATE 5 MG TABLET (FP) PO SCH (09:12)
[2023-07-07] MEDS: PRENATAL VITAMINS W/ FOLIC ACID TABLET (FP) PO SCH (09:12)
[2023-07-07] MEDS: NICOTINE 21 MG/24 HOURS TOPICAL PATCH TD SCH (09:12)
[2023-07-07 09:17] VITALS: BP 97/64; PULSE 109; RESP 20; TEMP 97.8
[2023-07-08] MEDS ORDERED: diazePAM 5 MG TABLET PO SCH (06:00)
[2023-07-09] MEDS ORDERED: diazePAM 5 MG TABLET PO ONE (06:00)
== END 2023-07-07 09:48 | disposition left against medical advice (07) | DRG 770 ==
LOC: YASAS 20:33 → Y6N 22:23 → Y3N 07-05 01:16
PROVIDERS: ADMIT Allergy & Immunology; ATTEND Surgery
PROC: HZ2ZZZZ Detoxification Services for Substance Abuse Treatment (ICD-10-PCS; principal; 2023-07-04)
DX: F10.230 Alcohol dependence with withdrawal, uncomplicated (principal); F17.210 Nicotine dependence, cigarettes, uncomplicated; F10.282 Alcohol dependence with alcohol-induced sleep disorder; F10.24 Alcohol dependence with alcohol-induced mood disorder; I10 Essential (primary) hypertension; J45.20 Mild intermittent asthma, uncomplicated; M54.50 Low back pain, unspecified; G89.29 Other chronic pain; R45.89 Other symptoms and signs involving emotional state; Z56.0 Unemployment, unspecified; Z59.00 Homelessness unspecified
CPT/HCPCS: 36415; 80053; 80307; 85027; 86780; 87635